=== PATIENT | male | born 1935 | race Caucasian/White ===

== ENCOUNTER → 2017-02-24 | Outpatient (CLI) | payer MEDICARE ==
[~2017-02-24] MED LIST: CALC200T3 PO; CALC500T26 PO; DIPH25CA35 PO; ENAL10TA PO; GLUC1TAB55 PO; GUAI12003 PO; L.AC1CAP6 PO; LUTE6CAP3 PO; MULT-298 PO; SAW/1TAB2 PO; VIT1TABL32 PO; [UNRECOGNIZED DRUG - CODE] PO
== END | disposition home or self-care (01) ==
LOC: RAD 08:22
PROVIDERS: ATTEND Urology
DX: N20.0 Calculus of kidney (principal); Z87.442 Personal history of urinary calculi
CPT/HCPCS: 74000

== ENCOUNTER 2019-06-22 08:08 | Outpatient (CLI) | payer MEDICARE | END 2019-06-22 23:59 | disposition home or self-care (01) | LOC: RAD 08:08 | PROVIDERS: ATTEND Urology | DX: N20.0 Calculus of kidney (principal); I70.8 Atherosclerosis of other arteries; Z87.442 Personal history of urinary calculi | CPT/HCPCS: 74018 ==